=== PATIENT | female | born 1970 | race Caucasian/White ===

== ENCOUNTER → 2021-08-02 | Outpatient (CLI) | payer MEDICARE, OTHER | LOC: HEART 5 08:28 | DX: R07.89 Other chest pain (principal); I51.89 Other ill-defined heart diseases; I37.1 Nonrheumatic pulmonary valve insufficiency | CPT/HCPCS: 78452; 93306; A9502; J2785 ==

== ENCOUNTER → 2021-08-12 | Outpatient (CLI) | payer MEDICARE, OTHER | LOC: EXRD 10:59 | DX: I65.23 Occlusion and stenosis of bilateral carotid arteries (principal); Z86.73 Personal history of transient ischemic attack (TIA), and cerebral infarction without residual deficits | CPT/HCPCS: 93880 ==

== ENCOUNTER → 2021-10-19 | Outpatient (CLI) | payer MEDICARE, OTHER ==
[~2021-10-19] MED LIST: AMITRIPTYLINE H25 MG PO; ASPIRIN81 MG PO; ATORVASTATIN CA20 MG PO; BUPROPION HCL150 M1 PO; BUSPIRONE HCL10 MG PO; CREON DR 36,001 EACH PO; ESOMEPRAZOLE MA40 MG PO; FENOFIBRATE160 MG PO; FLUOCINOLON118.28 ML TP; HYDROCODON-ACE1 EAC6 PO; HYGROTON TAB 2525 MG PO; IBANDRONATE SO150 MG PO; ISOSORBIDE MONO30 MG PO; JANUVIA100 MG PO; KETOCONAZOLE120 ML TP; LASIX TAB 20 MG20 MG PO; LISINOPRIL20 MG PO; MECLIZINE HCL25 MG PO; METOPROLOL TART25 MG PO; ROPINIROLE HC0.25 MG PO; TIZANIDINE HCL4 MG PO; TOPIRAMATE100 MG PO; TRAZODONE HCL100 MG PO; VITAMIN D325 MC6 PO; ZOFRAN 4 MG TAB4 MG PO
[2021-10-19 15:25] LABS: HEMOGLOBIN 14.6 gm/dl (12.3-15.3); RED BLOOD COUNT 5.11 M/UL (4.00-5.10); WHITE BLOOD COUNT 6.5 K/UL (4.5-11.0)
[2021-10-19 15:49] LABS: BUN/CREATININE RATIO 28 (0-10)
== END ==
LOC: LAB 14:41
PROVIDERS: Internal Medicine Cardiovascular Disease
DX: Z01.818 Encounter for other preprocedural examination (principal); I48.92 Unspecified atrial flutter; I47.1 Supraventricular tachycardia; R00.2 Palpitations
CPT/HCPCS: 36415; 71046; 80048; 85025

== ENCOUNTER 2021-10-21 07:16 | Outpatient (CLI) | payer MEDICARE, OTHER ==
[~2021-10-21] VITALS: Ht 160 cm; Wt 103.0 kg
[2021-10-21] MEDS ORDERED: AMITRIPTYLINE H25 MG PO (08:22)
[2021-10-21] MEDS ORDERED: ASPIRIN81 MG PO (08:23)
[2021-10-21] MEDS ORDERED: ATORVASTATIN CA20 MG PO (08:24)
[2021-10-21] MEDS ORDERED: HYGROTON TAB 2525 MG PO (08:24)
[2021-10-21] MEDS ORDERED: CREON DR 36,001 EACH PO (08:25)
[2021-10-21] MEDS ORDERED: ESOMEPRAZOLE MA40 MG PO (08:26)
[2021-10-21] MEDS ORDERED: FLUOCINOLON118.28 ML TP (08:28)
[2021-10-21] MEDS ORDERED: LASIX TAB 20 MG20 MG PO (08:28)
[2021-10-21] MEDS ORDERED: FENOFIBRATE160 MG PO (08:28)
[2021-10-21] MEDS ORDERED: HYDROCODON-ACE1 EAC6 PO (08:29)
[2021-10-21] MEDS ORDERED: IBANDRONATE SO150 MG PO (08:30)
[2021-10-21] MEDS ORDERED: ISOSORBIDE MONO30 MG PO (08:30)
[2021-10-21] MEDS ORDERED: KETOCONAZOLE120 ML TP (08:31)
[2021-10-21] MEDS ORDERED: JANUVIA100 MG PO (08:31)
[2021-10-21] MEDS ORDERED: LISINOPRIL20 MG PO (08:32)
[2021-10-21] MEDS ORDERED: MECLIZINE HCL25 MG PO (08:32)
[2021-10-21] MEDS ORDERED: METOPROLOL TART25 MG PO (08:33)
[2021-10-21] MEDS ORDERED: ROPINIROLE HC0.25 MG PO (08:34)
[2021-10-21] MEDS ORDERED: VITAMIN D325 MC6 PO (08:35)
[2021-10-21] MEDS ORDERED: ZOFRAN 4 MG TAB4 MG PO (08:36)
[2021-10-21] MEDS ORDERED: TOPIRAMATE100 MG PO (13:12)
[2021-10-21] MEDS ORDERED: TRAZODONE HCL100 MG PO (13:13)
[2021-10-21] MEDS ORDERED: TIZANIDINE HCL4 MG PO (13:17)
[2021-10-21] MEDS ORDERED: BUSPIRONE HCL10 MG PO (13:18)
[2021-10-21] MEDS ORDERED: BUPROPION HCL150 M1 PO (13:18)
== END 2021-10-22 12:15 | disposition home or self-care (01) ==
LOC: CATH 07:16 → PROG CARE 11:37 → CATH 10-22 12:15
DX: R55 Syncope and collapse (principal)
CPT/HCPCS: 82962; 93005; 93609; 93620; 93621; 93623; 99152; 99153; C1730; C1733; C1766; C1887; J1200; J1644; J2250; J3010; J7040

== ENCOUNTER → 2021-11-01 | Outpatient (CLI) | payer MEDICARE, OTHER | LOC: KOH-I 14:30 | DX: M79.604 Pain in right leg (principal) | CPT/HCPCS: 93970 ==

== ENCOUNTER → 2022-01-11 | Outpatient (CLI) | payer MEDICARE, OTHER | LOC: HEART 5 12-28 15:30 | DX: R00.2 Palpitations (principal) ==